=== PATIENT | male | born 1950 | race Caucasian/White ===

== ENCOUNTER 2017-10-05 22:15 | Observation (INO) | payer BC, OTHER ==
[~2017-10-05] VITALS: Ht 172.7 cm; Wt 127.2 kg
[~2017-10-05 22:15] MED LIST: NAPROSYN500 MG PO
[2017-10-05 22:50] LABS: HEMATOCRIT 41.6 % (38.0-50.0); HEMOGLOBIN 14.1 G/DL (12.5-16.6); MCH 30.5 PG (29.0-34.0); MCHC 33.9 G/DL (30.0-36.0); PLATELET COUNT 236 K/uL (156-360); RBC DIS.WIDTH-CV 12.5 % (11.8-14.6); RBC DIS.WIDTH-SD 41.1 % (39-53); RED BLOOD COUNT 4.62 M/uL (4.00-5.50); WHITE BLOOD COUNT 16.2 K/uL (4.1-10.2)
[2017-10-05 23:01] LABS: CHLORIDE 101 mEq/L (99-109); SODIUM 134 mEq/L (136-147)
[2017-10-05 23:03] LABS: GLUCOSE 197 mg/dL (70-99)
[2017-10-05 23:07] LABS: GFR ESTIMATE (CALCULATED) > 59 mL/min/ (58.99-99999)
[2017-10-05 23:08] LABS: UREA NITROGEN (BUN) 14 mg/dL (9-23)
[2017-10-05 23:36] LABS: APPEARANCE CLEAR ((CLEAR)); BILIRUBIN NEGATIVE; BLOOD SMALL; COLOR YELLOW ((YELLOW)); GLUCOSE (STRIP) 50; KETONES 5; LEUKOCYTES NEGATIVE; NITRITE NEGATIVE; PROTEIN (STRIP) 100; SPECIFIC GRAVITY 1.029 (1.000-1.030); UROBILINOGEN 0.2 MG/DL (0.2-1.0)
[2017-10-05 23:45] LABS: BACTERIA NONE SEEN /HPF; EPITHELIAL CELLS RARE /HPF; MUCUS TRACE /LPF; UCUL ADDED? NO; WHITE BLOOD CELLS 0-5 /HPF (0-5)
[2017-10-06 03:03] LABS: TROP-I INTERPRETATION NEGATIVE; TROPONIN-I < 0.01 ng/mL (0.0-0.30)
[2017-10-06 08:48] VITALS: BP 123/57
[2017-10-06] MEDS ORDERED: CYCLOBENZAPRINE10 MG PO (09:14)
[2017-10-06] MEDS ORDERED: DURAGESIC50 MCG TD (09:14)
[2017-10-06] MEDS ORDERED: CELEBREX200 MG PO (09:15)
[2017-10-06] MEDS ORDERED: LIPITOR40 MG PO (09:16)
[2017-10-06] MEDS ORDERED: PRINIVIL5 MG PO (09:16)
[2017-10-06] MEDS ORDERED: COLACE100 MG PO (09:16)
[2017-10-06] MEDS ORDERED: LO-DOSE ASPIRIN81 M2 PO (09:17)
[2017-10-06] MEDS ORDERED: GLUCOPHAGE500 MG PO (09:18)
[2017-10-06] MEDS ORDERED: ENDOCET 5-3251 EACH PO (09:19)
[2017-10-06 13:12] VITALS: BP 112/56
[2017-10-06 15:24] VITALS: BP 145/73
[2017-10-06 15:45] LABS: HEMATOCRIT 37.5 % (38.0-50.0); HEMOGLOBIN 12.3 G/DL (12.5-16.6); MCH 30.6 PG (29.0-34.0); MCHC 32.8 G/DL (30.0-36.0); MCV 93.3 FL (86-99); PLATELET COUNT 193 K/uL (156-360); RBC DIS.WIDTH-CV 12.8 % (11.8-14.6); RBC DIS.WIDTH-SD 44.1 % (39-53); RED BLOOD COUNT 4.02 M/uL (4.00-5.50); WHITE BLOOD COUNT 11.3 K/uL (4.1-10.2)
[2017-10-06 15:58] LABS: CHLORIDE 103 MEQ/L (99-109); POTASSIUM 3.9 MEQ/L (3.7-5.4); SODIUM 136 MEQ/L (136-147)
[2017-10-06 16:03] LABS: CREATININE 0.8 MG/DL (0.6-1.3); GFR ESTIMATE (CALCULATED) > 59 mL/min/ (58.99-99999); GLUCOSE 164 mg/dL (70-99); UREA NITROGEN (BUN) 12 mg/dL (9-23)
[2017-10-06 19:35] VITALS: BP 128/60
[2017-10-07 00:22] VITALS: BP 156/75
[2017-10-07 05:32] LABS: HEMATOCRIT 39.4 % (38.0-50.0); HEMOGLOBIN 12.8 G/DL (12.5-16.6); MCH 30.1 PG (29.0-34.0); MCHC 32.5 G/DL (30.0-36.0); MCV 92.7 FL (86-99); PLATELET COUNT 176 K/uL (156-360); RBC DIS.WIDTH-CV 12.7 % (11.8-14.6); RBC DIS.WIDTH-SD 43.2 % (39-53); RED BLOOD COUNT 4.25 M/uL (4.00-5.50); WHITE BLOOD COUNT 10.6 K/uL (4.1-10.2)
[2017-10-07 05:56] LABS: CHLORIDE 100 MEQ/L (99-109); CREATININE 0.8 MG/DL (0.6-1.3); GFR ESTIMATE (CALCULATED) > 59 mL/min/ (58.99-99999); GLUCOSE 132 mg/dL (70-99); POTASSIUM 4.1 MEQ/L (3.7-5.4); SODIUM 135 MEQ/L (136-147); UREA NITROGEN (BUN) 11 mg/dL (9-23)
[2017-10-07 08:00] VITALS: BP 160/88
[2017-10-07 11:42] VITALS: BP 129/64
[2017-10-07 15:26] VITALS: BP 160/81
[2017-10-07 20:00] VITALS: BP 158/75
[2017-10-08 00:02] VITALS: BP 133/61
[2017-10-08 05:53] LABS: BASOPHIL (%) 0.2 % (0-1); EOSINOPHIL (%) 0.5 % (0-5); HEMATOCRIT 45.3 % (38.0-50.0); HEMOGLOBIN 14.7 G/DL (12.5-16.6); IMMATURE GRANULOCYTE (%) 0.3 % (0.0-0.7); LYMPHOCYTE (%) 27.3 % (15-42); LYMPHOCYTE COUNT 1.8 K/uL (1.0-2.8); MCH 29.4 PG (29.0-34.0); MCHC 32.5 G/DL (30.0-36.0); MCV 90.6 FL (86-99); MONOCYTE (%) 15.9 % (3-12); NEUTROPHIL (%) 55.8 % (45-76); NEUTROPHIL COUNT 3.6 K/uL (1.8-6.4); PLATELET COUNT 146 K/uL (156-360); RBC DIS.WIDTH-CV 12.3 % (11.8-14.6); WHITE BLOOD COUNT 6.4 K/uL (4.1-10.2)
[2017-10-08 06:36] LABS: CHLORIDE 100 MEQ/L (99-109); CREATININE 0.8 MG/DL (0.6-1.3); GFR ESTIMATE (CALCULATED) > 59 mL/min/ (58.99-99999); GLUCOSE 109 mg/dL (70-99); POTASSIUM 3.9 MEQ/L (3.7-5.4); SODIUM 136 MEQ/L (136-147); UREA NITROGEN (BUN) 14 mg/dL (9-23)
[2017-10-08] MEDS ORDERED: BUTALB-APAP-CA1 EACH PO (08:08)
[2017-10-08 08:38] VITALS: BP 142/92
[2017-10-08] MEDS ORDERED: GABAPENTIN100 MG PO (08:55)
[2017-10-08] MEDS ORDERED: ZOFRAN4 MG PO (08:55)
== END 2017-10-08 10:55 | disposition home or self-care (01) ==
LOC: EME 22:15 → 5WEST 10-06 04:35 → EDOF 10-06 04:35 → ENRESERV 10-06 04:36 → 5WEST 10-06 05:32
PROVIDERS: Hospitalist; Internal Medicine
DX: M48.07 Spinal stenosis, lumbosacral region (principal); M47.27 Other spondylosis with radiculopathy, lumbosacral region; M25.78 Osteophyte, vertebrae; G89.29 Other chronic pain; M54.2 Cervicalgia; R11.2 Nausea with vomiting, unspecified; D72.828 Other elevated white blood cell count; E86.0 Dehydration; I10 Essential (primary) hypertension; E78.5 Hyperlipidemia, unspecified; Z98.1 Arthrodesis status; E11.9 Type 2 diabetes mellitus without complications; R00.0 Tachycardia, unspecified; Z79.82 Long term (current) use of aspirin; Z79.84 Long term (current) use of oral hypoglycemic drugs; Z79.891 Long term (current) use of opiate analgesic; Z80.51 Family history of malignant neoplasm of kidney; Z83.3 Family history of diabetes mellitus; Z87.891 Personal history of nicotine dependence
CPT/HCPCS: 70450; 71045; 72148; 74177; 80048; 80048 91; 81003; 82948; 83605; 84484; 85025; 85027; 85652; 86140; 87040; 93005; 99281; 99285; G0378; J1644; J1815; J2270; J2405; J7030; J7040